=== PATIENT | male | born 1970 | race Caucasian/White ===

== ENCOUNTER 2025-01-18 07:49 | Day surgery (SDC) | payer OTHER ==
[~2025-01-18] VITALS: Ht 188 cm; Wt 100.8 kg
[2025-01-18] VITALS (8 sets, daily range): BP systolic 120–138; BP diastolic 74–86
[~2025-01-18 07:49] MED LIST: CeFAZolin Sodium 2,000 MG VIAL ONE; CeFAZolin Sodium 2,000 MG in NS 100 ML IV SCH; Loratadine10 MG PO; MULTI-VITAMIN1 EAC2 PO
[2025-01-18] MEDS ORDERED: Bupivacaine 0.5% HCl 5 MG/ML 30MLVIAL ONE (09:36)
--- NOTE | 2025-01-18 09:48 | NUR ---
History, Chart, Medications and Allergies reviewed before start of procedure.Lungs clear T/O to Auscultation. Patient confirms NPO status and agrees with scheduled surgery. Pre-Op teaching done. Pt verbalizes understanding.VOIDED PRIOR TO SURGERY
[2025-01-18] MEDS ORDERED: FentaNYL Citrate 50 MCG/ML 2 ML Injection ONE (09:57)
[2025-01-18] MEDS ORDERED: Dexamethasone Sod Phos 10 MG/ML 1ML VIAL ONE (09:59)
[2025-01-18] MEDS ORDERED: Ondansetron HCl 2 MG / ML 2ML Vial ONE (09:59)
[2025-01-18] MEDS ORDERED: Ketorolac Tromethamine 30mg Vial ONE (09:59)
[2025-01-18] MEDS ORDERED: Prochlorperazine Edisylate 10 mg Vial IV PRN (10:05)
[2025-01-18] MEDS ORDERED: FentaNYL Citrate 50 MCG/ML 2 ML Injection IV PRN (10:05)
[2025-01-18] MEDS ORDERED: Albuterol 2.5 MG/3 ML VIAL INH PRN (10:05)
[2025-01-18] MEDS ORDERED: HYDROmorphone HCl/Pf 1MG SYR IV PRN (10:05)
[2025-01-18] MEDS ORDERED: Rocuronium Bromide 10 MG/ML 5ML Injection IV ONE (11:07)
[2025-01-18] MEDS ORDERED: Sugammadex Sodium 200 MG/2ML SDV (100 MG/ML) ONE (11:41)
[2025-01-18] MEDS ORDERED: HYDROmorphone HCl/Pf 1MG SYR ONE (11:44)
[2025-01-18] MEDS ORDERED: OxyCODONE 5 mg/Acetamin 325 mg TABLET PO PRN (12:05)
--- NOTE | 2025-01-18 13:12 | NUR ---
Discharge instructions reviewed with patient. Patient verbalizes understanding. Copy given to patient to take home. Prescription electronically sent. Dressings c/d/i. Patient States Post-Procedure ride home has been arranged. Discharged via wheelchair to private car for ride home.
== END 2025-01-18 13:17 | disposition home or self-care (01) ==
LOC: ORSCMMR 07:49 → ORD 09:00 → ORSCMMR 09:00
PROVIDERS: Surgery
PROC: 8E0W4CZ Robotic Assisted Procedure of Trunk Region, Percutaneous Endoscopic Approach (ICD-10-PCS; principal; 2025-01-18 09:00)
PROC: 0WUF4JZ Supplement Abdominal Wall with Synthetic Substitute, Percutaneous Endoscopic Approach (ICD-10-PCS; principal; 2025-01-18 09:00)
PROC: 3E0T3BZ Introduction of Anesthetic Agent into Peripheral Nerves and Plexi, Percutaneous Approach (ICD-10-PCS; principal; 2025-01-18 09:00)
DX: K42.0 Umbilical hernia with obstruction, without gangrene (principal); K76.0 Fatty (change of) liver, not elsewhere classified
CPT/HCPCS: A9270; C1781; J0690; J1100; J1171; J1885; J2405; J2704; J3010; J7120